=== PATIENT | female | born 1930 | race African-American/Black ===

== ENCOUNTER 2018-02-25 16:35 | Emergency (ER) | payer MEDICARE, BC ==
[~2018-02-25] VITALS: Ht 149.9 cm; Wt 53.0 kg
[2018-02-25 18:01] LABS: BASOPHILS % 1.5 % (0.0-2.0); EOSINOPHILS % 1.9 % (0.0-5.0); HEMATOCRIT. 30.6 % (36.0-48.0); HEMOGLOBIN. 10.3 g/dL (12.0-16.0); LYMPHOCYTES % 32.3 % (20.0-50.0); MEAN CORPUSCULAR HEMOGLOBIN 33.7 pg (28.0-32.0); MEAN CORPUSCULAR VOLUME 100.1 fL (81.0-99.0); MEAN PLATELET VOLUME 7.5 fl (7.4-10.4); MONOCYTES % 11.7 % (2.0-8.0); NEUTROPHILS % 52.6 % (40.0-76.0); PLATELET 258 x1000/uL (130-400); RED BLOOD CELL COUNT 3.05 mill/uL (4.2-5.4); RED CELL DISTRIBUTION WIDTH 13.9 % (11.6-14.6)
[2018-02-25 18:05] LABS: CHLORIDE 106 mEq/L (98-107)
[2018-02-25 18:06] LABS: PROTHROMBIN TIME 10.2 sec (9.4-11.6)
[2018-02-25] MEDS ORDERED: SODIUM POLYSTYRENE SULFONATE 15 G/60 ML BOT PO ONE (19:45)
[2018-02-25 21:38] VITALS: BP 165/81
== END 2018-02-25 21:56 | disposition home or self-care (01) ==
LOC: ER 17:04
DX: R78.89 Finding of other specified substances, not normally found in blood (principal); E87.5 Hyperkalemia; N17.9 Acute kidney failure, unspecified; Z85.51 Personal history of malignant neoplasm of bladder; Z87.442 Personal history of urinary calculi
CPT/HCPCS: 36415; 80053; 85025; 85610; 93005; 99285

== ENCOUNTER 2019-12-21 12:31 | Inpatient (IN) | payer BC, MEDICARE ==
[~2019-12-21] VITALS: Ht 149.9 cm; Wt 53.5 kg
[2019-12-21 17:18] LABS: CHLORIDE 112 mEq/L (98-107)
[2019-12-21 17:29] LABS: BASOPHILS % 0.8 % (0.0-2.0); HEMATOCRIT. 35.4 % (36.0-48.0); HEMOGLOBIN. 11.8 g/dL (12.0-16.0); LYMPHOCYTES % 34.3 % (20.0-50.0); MEAN CORPUSCULAR HEMOGLOBIN 33.5 pg (28.0-32.0); MEAN CORPUSCULAR VOLUME 100.3 fL (81.0-99.0); MEAN PLATELET VOLUME 8.1 fl (7.4-10.4); MONOCYTES % 8.6 % (2.0-8.0); NEUTROPHILS % 53.3 % (40.0-76.0); PLATELET 266 x1000/uL (130-400); RED BLOOD CELL COUNT 3.53 mill/uL (4.2-5.4); RED CELL DISTRIBUTION WIDTH 14.1 % (11.6-14.6)
[2019-12-21] MEDS ORDERED: DEXTROSE 50% WATER 50ML SYRINGE IV ONE (17:30)
[2019-12-21] MEDS ORDERED: INSULIN REGULAR (HUMULIN R) 300UNITS/3ML IV ONE (17:30)
[2019-12-21] MEDS ORDERED: SODIUM POLYSTYRENE SULFONATE 15 G/60 ML BOT PO ONE (17:30)
[2019-12-21] MEDS ORDERED: SODIUM BICARBONATE 8.4% 1 MEQ/ML 50ML SYR IV ONE (17:30)
[2019-12-21 17:43] LABS: PROTHROMBIN TIME 9.9 sec (9.6-11.0)
[2019-12-21 18:13] LABS: CLARITY URINE CLEAR (CLEAR); COLOR URINE YELLOW (YELLOW); KETONES URINE TRACE (NEGATIVE); LEUKOCYTE ESTERASE URINE TRACE (NEGATIVE); NITRITE URINE NEGATIVE (NEGATIVE); OCCULT BLOOD URINE NEGATIVE (NEGATIVE); PROTEIN URINE NEGATIVE (NEGATIVE); SPECIFIC GRAVITY URINE 1.017 (1.005-1.030); UROBILINOGEN URINE 0.2 E.U./dL (0.2-1.0)
[2019-12-22] VITALS (7 sets, daily range): BP systolic 138–179; BP diastolic 54–77
[2019-12-22] MEDS ORDERED: CLONIDINE 0.1MG TABLET PO PRN (02:00)
[2019-12-22] MEDS ORDERED: ONDANSETRON HCL 4MG/2ML INJ IV PRN (02:00)
[2019-12-22] MEDS ORDERED: MORPHINE SULFATE 2 MG/ML CPJ (NOT FOR IM USE) IV PRN (02:00)
[2019-12-22 03:45] LABS: BASOPHILS % 0.7 % (0.0-2.0); EOSINOPHILS % 0.4 % (0.0-5.0); HEMATOCRIT. 30.2 % (36.0-48.0); HEMOGLOBIN. 10.5 g/dL (12.0-16.0); LYMPHOCYTES % 10.5 % (20.0-50.0); MEAN CORPUSCULAR HEMOGLOBIN 34.4 pg (28.0-32.0); MEAN CORPUSCULAR VOLUME 98.8 fL (81.0-99.0); MEAN PLATELET VOLUME 7.9 fl (7.4-10.4); MONOCYTES % 6.6 % (2.0-8.0); NEUTROPHILS % 81.8 % (40.0-76.0); PLATELET 221 x1000/uL (130-400); RED BLOOD CELL COUNT 3.05 mill/uL (4.2-5.4); RED CELL DISTRIBUTION WIDTH 13.8 % (11.6-14.6)
[2019-12-22 03:47] LABS: CHLORIDE 114 mEq/L (98-107)
[2019-12-22] MEDS: PANTOPRAZOLE 40MG DR TABLET PO SCH (06:12)
[2019-12-22] MEDS: AMLODIPINE 10MG TABLET PO SCH (08:36)
[2019-12-22] MEDS ORDERED: PANTOPRAZOLE SODIUM 40 MG/VIAL IV SCH (09:00)
[2019-12-22] MEDS: HYDRALAZINE HCL 50MG TABLET PO SCH (21:11)
[2019-12-23] VITALS: BP 127/67
[2019-12-23 04:00] VITALS: BP 127/61
[2019-12-23] MEDS: PANTOPRAZOLE 40MG DR TABLET PO SCH (06:25)
[2019-12-23 07:51] LABS: BASOPHILS % 1.3 % (0.0-2.0); EOSINOPHILS % 3.3 % (0.0-5.0); HEMATOCRIT. 34.1 % (36.0-48.0); HEMOGLOBIN. 11.4 g/dL (12.0-16.0); LYMPHOCYTES % 29.2 % (20.0-50.0); MEAN CORPUSCULAR HEMOGLOBIN 33.7 pg (28.0-32.0); MEAN CORPUSCULAR VOLUME 100.5 fL (81.0-99.0); MONOCYTES % 8.6 % (2.0-8.0); NEUTROPHILS % 57.6 % (40.0-76.0); PLATELET 247 x1000/uL (130-400); RED BLOOD CELL COUNT 3.39 mill/uL (4.2-5.4); RED CELL DISTRIBUTION WIDTH 13.7 % (11.6-14.6)
[2019-12-23 08:05] VITALS: BP 151/61
[2019-12-23 08:17] LABS: PHOSPHORUS 3.6 mg/dL (2.5-4.9)
[2019-12-23] MEDS: HYDRALAZINE HCL 50MG TABLET PO SCH (08:26)
[2019-12-23] MEDS: AMLODIPINE 10MG TABLET PO SCH (08:27)
[2019-12-23 11:41] VITALS: BP 166/55
[2019-12-23 13:08] VITALS: BP 150/59
== END 2019-12-23 15:16 | disposition home or self-care (01) | DRG 305 ==
LOC: ER 12:31 → ENRESERV 23:12 → 6WST 12-22 00:25
PROVIDERS: ADMIT Internal Medicine; ATTEND Internal Medicine
DX: I16.0 Hypertensive urgency (principal); N17.9 Acute kidney failure, unspecified; N18.4 Chronic kidney disease, stage 4 (severe); E87.5 Hyperkalemia; E78.00 Pure hypercholesterolemia, unspecified; E87.8 Other disorders of electrolyte and fluid balance, not elsewhere classified; I12.9 Hypertensive chronic kidney disease with stage 1 through stage 4 chronic kidney disease, or unspecified chronic kidney disease; I34.0 Nonrheumatic mitral (valve) insufficiency; F41.9 Anxiety disorder, unspecified; K21.9 Gastro-esophageal reflux disease without esophagitis; D64.9 Anemia, unspecified; Z85.51 Personal history of malignant neoplasm of bladder; Z87.442 Personal history of urinary calculi; Z90.49 Acquired absence of other specified parts of digestive tract
CPT/HCPCS: 36415; 80048; 80053; 81003; 82962; 83735; 84100; 85025; 86850; 86900; 93005; 93970; 96374; 96375; 97162; 99291; J1815; J3490